=== PATIENT | male | born 2000 | race Caucasian/White ===

== ENCOUNTER 2019-05-06 10:16 | Emergency (ER) | payer SELFPAY ==
[2019-05-06] MEDS ORDERED: NA CHLORIDE 0.9% 1,000 ML ONE (10:58)
[2019-05-06] MEDS ORDERED: ONDANSETRON 4 MG/2 ML VIAL ONE (10:58)
[2019-05-06 10:59] LABS: Absolute Lymphocytes (CBC) 1.9 K/uL (0.7-4.9); Absolute Monocytes 0.4 K/uL (0.1-1.3); Absolute Neutrophil 3.5 K/uL (1.8-8.0); Basophils % 1.3 % (0-1.3); Eosinophils % 3.5 % (0-4.4); Hematocrit 47.6 % (39.6-49.0); Lymphocytes % 31.6 % (15.3-44.8); MPV 9.9 fL (7.6-11.3); Monocytes % 7.2 % (3.3-12.3); RBC Red Blood Cell Count 5.37 M/uL (4.33-5.43)
[2019-05-06 11:05] LABS: Urine Blood NEGATIVE (NEG); Urine Glucose NEGATIVE (NEG); Urine Protein 1+ (NEG); Urine Specific Gravity >1.030 (1.005-1.030)
[2019-05-06] MEDS ORDERED: FAMOTIDINE 20 MG/2 ML VIAL IV ONE (11:11)
[2019-05-06 11:16] LABS: ALT/SGPT 19 U/L (12-78); AST/SGOT 14 U/L (15-37); Albumin 4.7 g/dL (3.4-5.0); Alkaline Phosphatase 66 U/L (45-117); BUN Blood Urea Nitrogen 12 mg/dL (7-18); Bicarbonate 26 mmol/L (21-32); Bilirubin Direct 0.2 mg/dL (0-0.2); Glucose Level 94 mg/dL (74-106); Lipase 66 U/L (73-393); Protein, Total 7.9 g/dL (6.4-8.2); Sodium Level 139 mmol/L (136-145)
--- NOTE | 2019-05-06 11:36 | EDPHYS ---
Physician Documentation [facility] Name: Ac Jensen Age: 18 yrs Sex: Male : 2000 Arrival Date: 05/06/2019 Time: 10:20 Bed 20 Private MD: ED Physician Dimitri Jane HPI: 05/06 10:35 This 18 yrs old Male presents to ER via Ambulatory with complaints of cp Abdominal Pain. 10:35 The patient presents with abdominal pain that is diffuse. Onset: The symptoms/episode cp began/occurred yesterday. Associated signs and symptoms: Pertinent positives: nausea, vomiting, and diarrhea, Pertinent negatives: blood in stools, constipation, dysuria, fever, headache, testicular pain, vomiting blood. The symptoms are described as intermittent. Historical: - Allergies: 10:30 No Known Allergies; ss - Home Meds: 10:30 None [Active]; ss - PMHx: 10:30 None; ss - PSHx: 10:30 None; ss - Immunization history:: Adult Immunizations up to date. - Social history:: Smoking status: Patient/guardian denies using tobacco. - Ebola Screening: : Patient denies exposure to infectious person Patient denies travel to an Ebola-affected area in the 21 days before illness onset. ROS: 10:40 Constitutional: Negative for body aches, chills, fever. cp 10:40 Eyes: Negative for injury, pain, redness, and discharge. cp 10:40 ENT: Negative for drainage from ear(s), ear pain, sore throat, difficulty swallowing, difficulty handling secretions. 10:40 Cardiovascular: Negative for chest pain. 10:40 Respiratory: Negative for cough, shortness of breath, wheezing. 10:40 Abdomen/GI: Positive for abdominal pain, nausea, vomiting, and diarrhea, Negative for constipation, black/tarry stool, rectal bleeding. 10:40 Back: Negative for radiated pain. 10:40 : Negative for urinary symptoms, testicular pain 10:40 Skin: Negative for cellulitis, rash. 10:40 Neuro: Negative for altered mental status, headache, weakness. 10:40 All other systems are negative. Exam: 10:45 Constitutional: The patient appears in no acute distress, alert, awake, non-toxic, well cp developed, well nourished. 10:45 Head/Face: Normocephalic, atraumatic. cp 10:45 Eyes: Periorbital structures: appear normal, Conjunctiva: normal, no exudate, no injection, Lids and lashes: appear normal, bilaterally. 10:45 ENT: External ear(s): are unremarkable, Nose: is normal, Mouth: Lips: moist, Oral mucosa: moist, Posterior pharynx: is normal, airway is patent, no erythema, no exudate. 10:45 Chest/axilla: Inspection: normal, Palpation: is normal, no crepitus, no tenderness. 10:45 Cardiovascular: Rate: normal, Rhythm: regular. 10:45 Respiratory: the patient does not display signs of respiratory distress, Respirations: normal, no use of accessory muscles, no retractions, no splinting, no tachypnea, labored breathing, is not present, Breath sounds: are clear throughout. 10:45 Abdomen/GI: Inspection: abdomen appears normal, Bowel sounds: active, all quadrants, Palpation: abdomen is soft and non-tender, in all quadrants. Vital Signs: 10:30 BP 114 / 71; Pulse 63; Resp 15; Temp 98.3(TE); Pulse Ox 100% on R/A; Weight 58.97 kg; ss Height 5 ft. 11 in. (180.34 cm); Pain 4/10; 10:38 BP 118 / 77 Supine; Pulse 59; ss 10:40 BP 115 / 78 Sitting; Pulse 62; ss 10:42 BP 128 / 89 Standing; Pulse 86; ss 11:46 BP 116 / 76; Pulse 61; Resp 18; Pulse Ox 100% on R/A; ss 10:30 Body Mass Index 18.13 (58.97 kg, 180.34 cm) ss MDM: 10:23 Patient medically screened. cp 11:34 Data reviewed: vital signs, nurses notes, lab test result(s), and as a result, I will cp discharge patient. 11:34 Counseling: I had a detailed discussion with the patient and/or guardian regarding: the cp historical points, exam findings, and any diagnostic results supporting the discharge/admit diagnosis, lab results, to return to the emergency department if symptoms worsen or persist or if there are any questions or concerns that arise at home. Response to treatment: the patient's symptoms have markedly improved after treatment. Special discussion: Based on the patient's Hx, exam, and Dx evaluation, there is no indication for emergent surgery or inpatient Tx. It is understood by the patient/guardian that if the Sx's persist or worsen they need to return immediately for re-evaluation. 05/06 10:40 Order name: Urine Dipstick--Ancillary (enter results); Complete Time: 11:12 ag 05/06 11:12 Interpretation: Normal except: USPGR >1.030; UPROT 1+. cp 05/06 10:41 Order name: Basic Metabolic Panel; Complete Time: 11:19 cp 05/06 10:41 Order name: CBC with Diff; Complete Time: 11:12 cp 05/06 10:41 Order name: Creatinine for Radiology; Complete Time: 11:19 cp 05/06 10:41 Order name: Hepatic Function; Complete Time: 11:19 cp 05/06 11:19 Interpretation: Normal except: AST 14. cp 05/06 10:41 Order name: Lipase; Complete Time: 11:19 cp 05/06 11:19 Interpretation: Reviewed. cp 05/06 10:31 Order name: Orthostatics; Complete Time: 10:34 cp 05/06 10:41 Order name: IV Saline Lock; Complete Time: 10:50 cp 05/06 10:41 Order name: Labs collected and sent; Complete Time: 10:50 cp 05/06 11:20 Order name: PO challenge; Complete Time: 11:35 cp Administered Medications: 10:41 Not Given (Physician Discretion): Zofran 4 mg PO once cp 10:52 Drug: NS 0.9% 1000 ml Route: IV; Rate: 1 bolus; Site: right antecubital; em 11:34 Follow up: IV Status: Completed infusion; IV Intake: 1000ml em 10:55 Drug: Zofran 4 mg Route: IVP; Site: right antecubital; ss 11:34 Follow up: Response: No adverse reaction; Nausea is decreased em 10:57 Drug: Pepcid 20 mg Route: IVP; Site: right antecubital; ss 11:35 Follow up: Response: No adverse reaction em Disposition: 13:56 Co-signature as Attending Physician, Dimitri Jane MD. rn Disposition: 05/06/19 11:35 Discharged to Home. Impression: Nausea and vomiting, Diarrhea, unspecified. - Condition is Stable. - Discharge Instructions: Food Choices to Help Relieve Diarrhea, Adult, Diarrhea, Adult, Nausea and Vomiting, Adult. - Prescriptions for Pepcid 20 mg Oral Tablet - take 1 tablet by ORAL route every 12 hours for 5 days; 10 tablet. Zofran 4 mg Oral Tablet - take 1 tablet by ORAL route every 12 hours As needed; 20 tablet. - Medication Reconciliation Form, Thank You Letter, Antibiotic Education, Prescription Opioid Use form. - Follow up: Private Physician; When: 1 - 2 days; Reason: Worsening of condition. - Problem is new. - Symptoms have improved. Signatures: Dispatcher [employer] EDOH Seb Mora, HOME HEALTH CARE WORKER HOME HEALTH CARE WORKER em Dimitri Jane MD MD rn Smirch, Shelby, RN RN ss Ori Davis, PRIYA PA cp Corrections: (The following items were deleted from the chart) 11:54 11:35 05/06/2019 11:35 Discharged to Home. Impression: Nausea and vomiting; Diarrhea, ss unspecified. Condition is Stable. Forms are Medication Reconciliation Form, Thank You Letter, Antibiotic Education, Prescription Opioid Use. Follow up: Private Physician; When: 1 - 2 days; Reason: Worsening of condition. Problem is new. Symptoms have improved. cp
--- NOTE | 2019-05-06 11:36 | ER ---
Nurse's Notes [facility] Name: Ac Jensen Age: 18 yrs Sex: Male : 2000 Arrival Date: 05/06/2019 Time: 10:20 Bed 20 Private MD: Diagnosis: Nausea and vomiting;Diarrhea, unspecified Presentation: 05/06 10:29 Presenting complaint: Patient states: N/V that began yesterday with intermittent abd ss discomfort. Transition of care: patient was not received from another setting of care. Onset of symptoms was May 05, 2019. Risk Assessment: Do you want to hurt yourself or someone else? Patient reports no desire to harm self or others. Initial Sepsis Screen: Does the patient meet any 2 criteria? No. Patient's initial sepsis screen is negative. Does the patient have a suspected source of infection? No. Patient's initial sepsis screen is negative. Care prior to arrival: None. 10:29 Method Of Arrival: Ambulatory ss 10:29 Acuity: GERMAN 3 ss Historical: - Allergies: 10:30 No Known Allergies; ss - Home Meds: 10:30 None [Active]; ss - PMHx: 10:30 None; ss - PSHx: 10:30 None; ss - Immunization history:: Adult Immunizations up to date. - Social history:: Smoking status: Patient/guardian denies using tobacco. - Ebola Screening: : Patient denies exposure to infectious person Patient denies travel to an Ebola-affected area in the 21 days before illness onset. Screenin:30 Abuse screen: Denies threats or abuse. Nutritional screening: No deficits noted. em Tuberculosis screening: No symptoms or risk factors identified. Fall Risk None identified. Assessment: 10:30 General: Appears in no apparent distress. comfortable, Behavior is calm, cooperative, em Denies fever. Pain: Complains of pain in abdomen Pain currently is 4 out of 10 on a pain scale. Neuro: Level of Consciousness is awake, alert, obeys commands, Oriented to person, place, time, situation. Cardiovascular: Capillary refill < 3 seconds Patient's skin is warm and dry. Respiratory: Airway is patent Respiratory effort is even, unlabored, Respiratory pattern is regular, symmetrical. GI: Abdomen is flat, Bowel sounds present X 4 quads. Abd is soft and non tender X 4 quads. Reports diarrhea, nausea, vomiting. : Denies burning with urination. Derm: Skin is intact, is healthy with good turgor, Skin is pink, warm \T\ dry. Musculoskeletal: Capillary refill < 3 seconds, Range of motion: intact in all extremities. 11:45 Reassessment: Patient appears in no apparent distress at this time. Patient and/or ss family updated on plan of care and expected duration. Pain level reassessed. Patient is alert, oriented x 3, equal unlabored respirations, skin warm/dry/pink. Patient states feeling better. Patient states symptoms have improved. Vital Signs: 10:30 BP 114 / 71; Pulse 63; Resp 15; Temp 98.3(TE); Pulse Ox 100% on R/A; Weight 58.97 kg; ss Height 5 ft. 11 in. (180.34 cm); Pain 4/10; 10:38 BP 118 / 77 Supine; Pulse 59; ss 10:40 BP 115 / 78 Sitting; Pulse 62; ss 10:42 BP 128 / 89 Standing; Pulse 86; ss 11:46 BP 116 / 76; Pulse 61; Resp 18; Pulse Ox 100% on R/A; ss 10:30 Body Mass Index 18.13 (58.97 kg, 180.34 cm) ED Course: 10:20 Patient arrived in ED. rg4 10:22 Ori Davsi PA is PHCP. cp 10:22 Dimitri Jane MD is Attending Physician. cp 10:28 Seb Mora LVN is Primary Nurse. em 10:30 Triage completed. ss 10:30 Arm band placed on right wrist. ss 10:30 Patient has correct armband on for positive identification. Bed in low position. Call em light in reach. Pulse ox on. NIBP on. 10:48 Urine collected: clean catch specimen, clear, raimundo colored. jb1 10:50 Initial lab(s) drawn, by me, sent to lab. Inserted saline lock: 20 gauge in right em antecubital area, using aseptic technique. Blood collected. 11:47 No provider procedures requiring assistance completed. IV discontinued, intact, ss bleeding controlled, No redness/swelling at site. Pressure dressing applied. Administered Medications: 10:41 Not Given (Physician Discretion): Zofran 4 mg PO once cp 10:52 Drug: NS 0.9% 1000 ml Route: IV; Rate: 1 bolus; Site: right antecubital; em 11:34 Follow up: IV Status: Completed infusion; IV Intake: 1000ml em 10:55 Drug: Zofran 4 mg Route: IVP; Site: right antecubital; ss 11:34 Follow up: Response: No adverse reaction; Nausea is decreased em 10:57 Drug: Pepcid 20 mg Route: IVP; Site: right antecubital; ss 11:35 Follow up: Response: No adverse reaction em Intake: 11:34 IV: 1000ml; Total: 1000ml. em Outcome: 11:35 Discharge ordered by MD. cp 11:47 Discharged to home ambulatory. ss 11:47 Condition: good 11:47 Discharge instructions given to patient, Instructed on discharge instructions, follow up and referral plans. medication usage, Demonstrated understanding of instructions, follow-up care, medications, Prescriptions given X 2. 11:54 Patient left the ED. ss Signatures: Arturo Suarez [email or web address] Seb Mora, LOCK AND DAM OPERATOR LOCK AND DAM OPERATOR em Nahed Juarez RN RN Ori Davis PA PA cp Garcia, Rubi [id number]
== END 2019-05-06 11:54 | disposition home or self-care (01) ==
LOC: ER 10:16
DX: R19.7 Diarrhea, unspecified (principal)
CPT/HCPCS: 36415; 80048; 80076; 81003; 83690; 85025; 96361; 96374; 96375; 99284; J2405; J7030